=== PATIENT | female | born 1940 | race Caucasian/White ===

== ENCOUNTER → 2024-04-20 05:00 | Outpatient (REF) | payer MEDICARE, SELFPAY ==
[2024-04-20 08:35] LABS: Hematocrit 35.6 % (37-47); Hemoglobin 10.7 g/dL (12.0-15.0); Mean Corp Hgb Conc 30.1 g/dL (32-36); Mean Corpuscular Hgb 25.3 pg (27.0-32.0); Mean Corpuscular Volume 84.2 fL (81-99); Mean Platelet Vol. 9.6 fl (6.2-12.0); Platelet Count 217 K/mm3 (150-450); RBC Distribution Width CV 17.5 % (11.6-14.6); RBC Distribution Width SD 53.1 fl (35.1-43.9); Red Blood Count 4.23 M/mm3 (4.2-5.4); White Blood Count 5.7 K/mm3 (4.4-11.0)
[2024-04-20 08:43] LABS: ALB/GLOB Ratio 0.6 RATIO (0.9-2.4); AST(SGOT) 17 U/L (15-37); Alanine Aminotransfer ALT/SGPT 12 U/L (13-56); Alkaline Phosphatase 78 U/L (45-117); Anion Gap 6 (5-15); BUN 20 mg/dL (7-18); BUN/Creat Ratio 9.3 RATIO (10-20); Calcium,Total 8.3 mg/dL (8.5-10.1); Chloride 109 mmol/L (98-107); Creatinine, Serum 2.14 mg/dL (0.55-1.02); EST Glomerular Filtration Rate 24 mL/min (>60); Est Glom Filt Rate - Afr Amer 28 mL/min (>60); Globulin 3.6 g/dL (2.2-4.2); Glucose 162 mg/dL (74-106); Potassium 3.9 mmol/L (3.5-5.1); Protein, Total 5.6 g/dL (6.4-8.2); Sodium Level 143 mmol/L (136-145)
== END ==
LOC: OLS.ACW100 05:00
PROVIDERS: Visit Provider Family Medicine
DX: N39.0 Urinary tract infection, site not specified (principal); Z16.12 Extended spectrum beta lactamase (ESBL) resistance; R78.81 Bacteremia; A41.9 Sepsis, unspecified organism; B96.20 Unspecified Escherichia coli [E. coli] as the cause of diseases classified elsewhere
CPT/HCPCS: 36415; 80053; 82274; 85027

== ENCOUNTER → 2024-04-23 07:05 | Outpatient (REF) | payer MEDICARE, SELFPAY ==
[2024-04-23 09:24] LABS: Anion Gap 5 (5-15); BUN 23 mg/dL (7-18); BUN/Creat Ratio 11.3 RATIO (10-20); Calcium,Total 8.8 mg/dL (8.5-10.1); Chloride 111 mmol/L (98-107); Creatinine, Serum 2.03 mg/dL (0.55-1.02); EST Glomerular Filtration Rate 25 mL/min (>60); Est Glom Filt Rate - Afr Amer 30 mL/min (>60); Ferritin 26 ng/mL (8-252); Glucose 87 mg/dL (74-106); Iron 55 ug/dL (50-170); Iron Binding Capacity,Total 277 ug/dL (250-450); PERCENT IRON SATURATION 19.9 % (15.0-55.0); Potassium 4.1 mmol/L (3.5-5.1); Sodium Level 143 mmol/L (136-145)
== END ==
LOC: OLS.ACW100 07:05
PROVIDERS: Visit Provider Family Medicine
DX: N20.0 Calculus of kidney (principal); N18.5 Chronic kidney disease, stage 5; N39.0 Urinary tract infection, site not specified; R27.9 Unspecified lack of coordination; R41.841 Cognitive communication deficit; Z16.12 Extended spectrum beta lactamase (ESBL) resistance; Z74.1 Need for assistance with personal care
CPT/HCPCS: 36415; 80048; 82728; 83540; 83550

== ENCOUNTER → 2024-04-28 05:00 | Outpatient (REF) | payer MEDICARE, SELFPAY ==
[2024-04-28 08:38] LABS: Hemoglobin 9.9 g/dL (12.0-15.0); Mean Corpuscular Hgb 25.5 pg (27.0-32.0); Mean Corpuscular Volume 85.1 fL (81-99); Mean Platelet Vol. 10.1 fl (6.2-12.0); Platelet Count 151 K/mm3 (150-450); RBC Distribution Width CV 18.9 % (11.6-14.6); RBC Distribution Width SD 57.2 fl (35.1-43.9); Red Blood Count 3.88 M/mm3 (4.2-5.4); White Blood Count 6.6 K/mm3 (4.4-11.0)
[2024-04-28 08:53] LABS: Color, Urine Yellow (Yellow); Glucose, Dipstick Normal (Normal); Ketone-Dipstick Negative (Negative); Leukocyte Esterase-Dipstick 500 /ul (Negative); Nitrite-Dipstick Negative (Negative); Occult Blood-Urine 250 /ul (Negative); Protein-Dipstick 100 mg/dl (Negative); Specific Gravity, Urine 1.015 (1.002-1.030); Urine Bilirubin Dipstick Negative (Negative); Urine Clarity Cloudy (Clear); Urine Urobilinogen Normal (Normal)
== END ==
LOC: OLS.ACW100 05:00
PROVIDERS: Visit Provider Family Medicine
DX: N39.0 Urinary tract infection, site not specified (principal); R27.9 Unspecified lack of coordination; R41.841 Cognitive communication deficit; Z16.12 Extended spectrum beta lactamase (ESBL) resistance; Z74.1 Need for assistance with personal care
CPT/HCPCS: 36415; 81002; 85027; 87077; 87086; 87088; 87186

== ENCOUNTER → 2024-05-05 05:00 | Outpatient (REF) | payer MEDICARE, SELFPAY ==
[2024-05-05 10:06] LABS: Thyroid Stim Hormone (TSH) 5.78 uIU/mL (0.358-3.74)
== END ==
LOC: OLS.ACW100 05:00
PROVIDERS: Referring Provider Family Medicine; Visit Provider Family Medicine
DX: N39.0 Urinary tract infection, site not specified (principal); Z16.12 Extended spectrum beta lactamase (ESBL) resistance; R78.81 Bacteremia; A41.9 Sepsis, unspecified organism
CPT/HCPCS: 36415; 84443

== ENCOUNTER → 2024-07-02 | Outpatient (REF) | payer OTHER, SELFPAY ==
[2024-07-02 08:46] LABS: Hematocrit 33.9 % (37-47); Hemoglobin 9.6 g/dL (12.0-15.0); Mean Corp Hgb Conc 28.3 g/dL (32-36); Mean Corpuscular Hgb 25.9 pg (27.0-32.0); Mean Corpuscular Volume 91.4 fL (81-99); Mean Platelet Vol. 10.5 fl (6.2-12.0); Platelet Count 175 K/mm3 (150-450); RBC Distribution Width CV 17.5 % (11.6-14.6); RBC Distribution Width SD 57.4 fl (35.1-43.9); Red Blood Count 3.71 M/mm3 (4.2-5.4); White Blood Count 7.2 K/mm3 (4.4-11.0)
[2024-07-02 08:56] LABS: Vitamin D,25 Hydroxy 39.9 ng/mL
[2024-07-02 09:11] LABS: ALB/GLOB Ratio 0.6 RATIO (0.9-2.4); AST(SGOT) 15 U/L (15-37); Alanine Aminotransfer ALT/SGPT 13 U/L (13-56); Albumin, Serum 2.2 g/dL (3.2-5.0); Alkaline Phosphatase 92 U/L (45-117); Anion Gap 2 (5-15); BUN 36 mg/dL (7-18); BUN/Creat Ratio 17.7 RATIO (10-20); Calcium,Total 8.6 mg/dL (8.5-10.1); Chloride 118 mmol/L (98-107); Cholesterol 97 mg/dL (200); Creatinine, Serum 2.03 mg/dL (0.55-1.02); EST Glomerular Filtration Rate 25 mL/min (>60); Est Glom Filt Rate - Afr Amer 30 mL/min (>60); Globulin 3.6 g/dL (2.2-4.2); Glucose 112 mg/dL (74-106); High Density Lipoprotein 33 mg/dL; Magnesium 2.3 mg/dL (1.6-2.6); Potassium 4.3 mmol/L (3.5-5.1); Protein, Total 5.8 g/dL (6.4-8.2); Sodium Level 148 mmol/L (136-145); Triglycerides 81 mg/dL; Uric Acid 6.6 mg/dL (2.6-6.0); Very Low Density Lipoprotein 16 mg/dL (5-40)
[2024-07-02 10:01] LABS: Hemoglobin A1c 5.9 % (3.8-5.6)
== END ==
LOC: OLS.ACW100 05:00
PROVIDERS: Visit Provider Family Medicine
DX: C25.9 Malignant neoplasm of pancreas, unspecified (principal); R27.9 Unspecified lack of coordination; R41.841 Cognitive communication deficit; Z74.1 Need for assistance with personal care; Z16.12 Extended spectrum beta lactamase (ESBL) resistance
CPT/HCPCS: 36415; 80053; 80061; 82306; 83036; 83735; 84443; 84550; 85027